=== PATIENT | male | born 1950 | race Caucasian/White ===

== ENCOUNTER 2018-06-13 15:55 | Emergency (ER) | payer MEDICARE, OTHER ==
[2018-06-13] MEDS ORDERED: Pantoprazole 40 MG Vial IVPUSH ONE (15:57)
[2018-06-13] MEDS ORDERED: Ondansetron 4 MG/2 ML SDV IVPUSH ONE (15:57)
[2018-06-13] MEDS ORDERED: Sodium Chloride 0.9% 1,000 ML IV ONE (15:57)
--- NOTE | 2018-06-13 15:59 | EDM.PDOC ---
ED HPI GENERAL MEDICAL PROBLEM - General Chief Complaint: Gastrointestinal Problem Stated Complaint: HEADACHES, NAUSEA, DIARREA Time Seen by Provider: 06/13/18 15:58 Source of Information: Reports: Patient - History of Present Illness INITIAL COMMENTS - FREE TEXT/NARRATIVE: HISTORY AND PHYSICAL: History of present illness: [Patient presents with nausea and diarrhea since Saturday no fever chills sweats 3 -4 loose stools daily no blood or mucus No vomiting chest pain shortness of breath headache dizziness or palpitation no urine symptoms at current ] Review of systems: As per history of present illness and below otherwise all systems reviewed and negative. Past medical history: As per history of present illness and as reviewed below otherwise noncontributory. Surgical history: As per history of present illness and as reviewed below otherwise noncontributory. Social history: No reported history of drug or alcohol abuse. Family history: As per history of present illness and as reviewed below otherwise noncontributory. Physical exam: HEENT: Atraumatic, normocephalic, pupils reactive, negative for conjunctival pallor or scleral icterus, mucous membranes moist, throat clear, neck supple, nontender, trachea midline. Lungs: Clear to auscultation, breath sounds equal bilaterally, chest nontender. Heart: S1S2, regular, negative for clicks, rubs, or JVD. Abdomen: Soft, nondistended, nontender. Negative for masses or hepatosplenomegaly. Negative for costovertebral tenderness. Pelvis: Stable nontender. Genitourinary: Deferred. Rectal: Deferred. Extremities: Atraumatic, negative for cords or calf pain. Neurovascular unremarkable. Neuro: Awake, alert, oriented. Cranial nerves II through XII unremarkable. Cerebellum unremarkable. Motor and sensory unremarkable throughout. Exam nonfocal. Diagnostics: [CBC CMP troponin lipase UA ]UTI abdomen pelvis with contrast Stool workup was considered of your patient unable to provide a sample of samples provided we will perform the studies Therapeutics: [Normal saline Zofran 8 mg IV Proton X 80 mg IV Follow-up with primary care to schedule MRI of the pancreas Zofran 8 mg ODT #30 no refill Impression: [Viral syndrome] Elevated lipase Low-attenuation lesion on the tail of pancreas Definitive disposition and diagnosis as appropriate pending reevaluation and review of above. Lower abdomen Pain Score (Numeric/FACES): 1 - Related Data Allergies Allergy/AdvReac Type Severity Reaction Status Date / Time niacin Allergy Other Verified 06/13/18 16:10 ED ROS GENERAL - Review of Systems Review Of Systems: See Below ED EXAM, GENERAL - Physical Exam Exam: See Below Course - Vital Signs Last Recorded V/S: Last Vital Signs Temp 97.9 F 06/13/18 16:14 Pulse 65 06/13/18 16:14 Resp 16 06/13/18 16:14 BP 106/73 06/13/18 16:14 Pulse Ox 95 06/13/18 16:14 - Orders/Labs/Meds Orders: Active Orders 24 hr Category Date Time Status Abdomen Pelvis w Cont [CT] Stat Exams 06/13/18 16:49 Taken UA W/MICROSCOPIC [URIN] Stat Lab 06/13/18 16:11 Ordered Labs: Laboratory Tests 06/13/18 06/13/18 06/13/18 Range/Units 16:04 16:04 16:11 WBC 4.48 (4.0-11.0) K/uL RBC 5.15 (4.50-5.90) M/uL Hgb 15.3 (13.0-17.0) g/dL Hct 42.0 (38.0-50.0) % MCV 81.6 (80.0-98.0) fL MCH 29.7 (27.0-32.0) pg MCHC 36.4 (31.0-37.0) g/dL RDW Std Deviation 39.6 (28.0-62.0) fl RDW Coeff of Demarcus 13 (11.0-15.0) % Plt Count 186 (150-400) K/uL MPV 9.20 (7.40-12.00) fL Neut % (Auto) 56.5 (48.0-80.0) % Lymph % (Auto) 29.7 (16.0-40.0) % [place] % (Auto) 12.3 (0.0-15.0) % Eos % (Auto) 1.3 (0.0-7.0) % Baso % (Auto) 0.2 (0.0-1.5) % Neut # (Auto) 2.5 (1.4-5.7) K/uL Lymph # (Auto) 1.3 (0.6-2.4) K/uL [place] # (Auto) 0.6 (0.0-0.8) K/uL Eos # (Auto) 0.1 (0.0-0.7) K/uL Baso # (Auto) 0.0 (0.0-0.1) K/uL Nucleated RBC % 0.0 /100WBC Nucleated RBCs # 0 K/uL Sodium 143 (136-148) mmol/L Potassium 3.4 L (3.5-5.1) mmol/L Chloride 105 (98-107) mmol/L Carbon Dioxide 31.3 (21.0-32.0) mmol/L BUN 17 (7.0-18.0) mg/dL Creatinine 1.2 (0.8-1.3) mg/dL Est Cr Clr Drug Dosing 57.38 mL/min Estimated GFR (MDRD) > 60.0 ml/min Glucose 93 (74-106) mg/dL Calcium 9.4 (8.5-10.1) mg/dL Total Bilirubin 1.0 (0.2-1.0) mg/dL AST 28 (15-37) IU/L ALT 57 (14-63) IU/L Alkaline Phosphatase 105 (46-116) U/L Troponin I < 0.050 (0.000-0.056) ng/mL Total Protein 7.2 (6.4-8.2) g/dL Albumin 4.0 (3.4-5.0) g/dL Globulin 3.2 (2.0-3.5) g/dL Albumin/Globulin Ratio 1.3 (1.3-2.8) Lipase 545 H (73-393) U/L Urine Color YELLOW Urine Appearance CLEAR Urine pH 6.0 (5.0-8.0) Ur Specific [place] 1.025 (1.001-1.035) Urine Protein NEGATIVE (NEGATIVE) mg/dL Urine Glucose (UA) NEGATIVE (NEGATIVE) mg/dL Urine Ketones NEGATIVE (NEGATIVE) mg/dL Urine Occult Blood NEGATIVE (NEGATIVE) Urine Nitrite NEGATIVE (NEGATIVE) Urine Bilirubin NEGATIVE (NEGATIVE) Urine Urobilinogen 0.2 (<2.0) EU/dL Ur Leukocyte Esterase NEGATIVE (NEGATIVE) Urine RBC NONE SEEN (0-2/HPF) Urine WBC 0-1 (0-5/HPF) Ur Epithelial Cells RARE (NONE-FEW) Amorphous Sediment RARE (NEGATIVE) Urine Bacteria RARE (NEGATIVE) Meds: Medications Discontinued Medications Generic Name Dose Route Start Last Admin Trade Name Pantera PRN Reason Stop Dose Admin Sodium Chloride 1,000 mls @ 999 mls/hr 06/13/18 15:57 06/13/18 16:29 Normal Saline IV 06/13/18 16:57 999 mls/hr STAT ONE Administration Iopamidol 100 ml 06/13/18 17:27 06/13/18 17:27 Isovue-370 (76%) IVPUSH 06/13/18 17:28 100 ml ONETIME ONE Administration Ondansetron HCl 8 mg 06/13/18 15:57 06/13/18 16:26 Zofran IVPUSH 06/13/18 15:58 8 mg ONETIME ONE Administration Pantoprazole Sodium 80 mg 06/13/18 15:57 06/13/18 16:26 Protonix Iv IVPUSH 06/13/18 15:58 80 mg .BOLUS ONE Administration Departure - Departure Time of Disposition: 18:31 Disposition: Home, Self-Care 01 Condition: Good Clinical Impression: Elevated lipase - Discharge Information Forms: ED Department Discharge Additional Instructions: Medication as prescribed Return if symptoms persist or worsen Follow-up with primary care in 2 weeks sooner as needed, schedule MRI of the pancreas for further evaluation [facility] [address] [place] [address] The following information is given to patients seen in the emergency department who are being discharged to home. This information is to outline your options for follow-up care. We provide all patients seen in our emergency department with a follow-up referral. The need for follow-up, as well as the timing and circumstances, are variable depending upon the specifics of your emergency department visit. If you don't have a primary care physician on staff, we will provide you with a referral. We always advise you to contact your personal physician following an emergency department visit to inform them of the circumstance of the visit and for follow-up with them and/or the need for any referrals to a consulting specialist. The emergency department will also refer you to a specialist when appropriate. This referral assures that you have the opportunity for follow-up care with a specialist. All of these measure are taken in an effort to provide you with optimal care, which includes your follow-up. Under all circumstances we always encourage you to contact your private physician who remains a resource for coordinating your care. When calling for follow-up care, please make the office aware that this follow-up is from your recent emergency room visit. If for any reason you are refused follow-up, please contact the [facility] emergency department at and asked to speak to the emergency department charge nurse. - My Orders Last 24 Hours: My Active Orders 06/13/18 16:11 UA W/MICROSCOPIC [URIN] Stat 06/13/18 16:49 Abdomen Pelvis w Cont [CT] Stat - Assessment/Plan Last 24 Hours: My Active Orders 06/13/18 16:11 UA W/MICROSCOPIC [URIN] Stat 06/13/18 16:49 Abdomen Pelvis w Cont [CT] Stat
[2018-06-13 16:43] LABS: CHLORIDE,CL 105 mmol/L (98-107); SODIUM,NA 143 mmol/L (136-148)
[2018-06-13] MEDS ORDERED: Iopamidol 755 Mg/ML 100 ML Bottle IVPUSH ONE (17:27)
--- NOTE | 2018-06-16 09:17 | CT ---
EXAM DATE: 06/13/18 PATIENT'S AGE: 67 Patient: JORGE PAK Facility: [place], [place] Site . Site : 1950 Study: CT Abdomen/Pelvis w/ cont. [id number]/[id number] 5:28:39 PM Ordering Physician: Vangie Mccoy Final Report: INDICATION: Pain, lipase 500. TECHNIQUE: Contiguous axial images were obtained from the domes of the diaphragm through the pubic symphysis following intravenous administration 100 mL of Isovue-370. 3D rendering, including image post processing was performed on an independent workstation. COMPARISON: None. FINDINGS: The visualized lower lung are unremarkable. There is a low-attenuation lesion too small to characterize in the right lobe of the liver (image 46 of series 301). There is there is no intrahepatic or extrahepatic biliary dilatation. There is no CT evidence of pancreatitis. However, in the tail of the pancreas there is a low-attenuation lesion spanning 0.8 cm on image 41 of series 301. This is rather peripheral to reflect IPMN and may reflect a small pancreatic cyst. In this patient with an elevated lipase consider nonemergent MR of the pancreas for further evaluation. There is no pancreatic duct dilatation. There is no intrahepatic or extrahepatic biliary dilatation. There is a 0.6 cm nonobstructing stone in the right lower kidney. The left kidney is unremarkable. Both kidneys enhance symmetric and there is no hydronephrosis nor hydroureter. Urinary bladder is unremarkable. Prostate gland is enlarged. There is no abdominal or pelvic ascites. Few scattered diverticula are noted in the sigmoid colon without CT evidence of diverticulitis. There is a retrocecal appendix which is normal. There is no CT evidence of appendicitis. IMPRESSION: 1. No CT evidence of pancreatitis. There is, however, a low-attenuation lesion in the tail of the pancreas for which non emergent pancreatic MR could be performed for further evaluation. 2. No intrahepatic or extrahepatic biliary dilatation. 3. Nonobstructing left renal stone 4. Diverticulosis without CT evidence of diverticulitis. Please note that all CT scans at this facility use dose modulation, iterative reconstruction, and/or weight-based dosing when appropriate to reduce radiation dose to as low as reasonably achievable. Dictated by Lilliana Beasley MD @ Jun 13 2018 5:43PM (Electronic Signature) Report Signed by Proxy. LONNY
== END 2018-06-13 18:52 | disposition home or self-care (01) ==
LOC: MW.ED 15:55
DX: B34.9 Viral infection, unspecified (principal); R74.8 Abnormal levels of other serum enzymes; Z88.8 Allergy status to other drugs, medicaments and biological substances
CPT/HCPCS: 36415; 74177; 80053; 81001; 83690; 84484; 85025; 96361; 96374; 96375; 99284; C9113; J2405; J7040; Q9967